=== PATIENT | female | born 1975 | race African-American/Black ===

== ENCOUNTER 2017-06-20 09:56 | Emergency (ER) | payer OTHER ==
[~2017-06-20] VITALS: Ht 167.6 cm; Wt 59.9 kg
[2017-06-20 10:20] LABS: ABSOLUTE NEUTROPHILS 7.6 thou/uL (1.4-8.2); BASOPHILS 0.2 % (0.0-2.0); LYMPHOCYTES 19.6 % (24.0-44.0); MANUAL DIFF NO; MCH 30.6 pg (26.0-34.0); MCHC 33.4 g/dL (28.0-37.0); MCV 91.6 fL (80.0-100.0); MONOCYTES 6.7 % (1.0-8.0); PLATELET COUNT 270 thou/uL (150-400); POLYS 73.5 % (36.0-66.0); RBC 4.26 mil/uL (4.20-5.00); WBC 10.4 thou/uL (4.0-11.0)
[2017-06-20 10:29] LABS: CALCIUM 8.7 mg/dL (8.5-10.1); CREATININE 0.9 mg/dL (0.6-1.0); POTASSIUM 3.3 mmol/L (3.5-5.1)
[2017-06-20 10:35] LABS: ALBUMIN 3.8 g/dL (3.4-5.0); TOTAL BILIRUBIN 0.5 mg/dL (<0.1-1.0); TOTAL PROTEIN 7.2 g/dL (6.4-8.2)
[2017-06-20 10:50] LABS: URINE BILIRUBIN NEGATIVE (Negative); URINE BLOOD NEGATIVE (Negative); URINE COLOR YELLOW; URINE GLUCOSE-RANDOM* NEGATIVE (Negative); URINE KETONES 1+ (Negative); URINE LEUKOCYTES-REFLEX NEGATIVE (Negative); URINE PROTEIN (DIPSTICK) TRACE (Negative); URINE SPECIFIC GRAVITY >= 1.030 (1.003-1.035); URINE UROBILINOGEN 0.2 E.U./dl (0.2-1.0)
[2017-06-20 11:47] VITALS: BP 119/78
[2017-06-20] MEDS ORDERED: SENNA8.6 MG PO (12:20)
[2017-06-20] MEDS ORDERED: DOXYCYCLINE 10100 MG PO (12:20)
[2017-06-20] MEDS ORDERED: TRAMADOL 50 MG50 MG PO (12:20)
[2017-06-20] MEDS ORDERED: FLAGYL500 MG PO (12:20)
[2017-06-21 17:12] LABS: CHLAMYDIA TRACHOMATIS-PCR Negative (Negative); NEISSERIA GONORRHEA-PCR Negative (Negative)
== END 2017-06-20 12:24 | disposition home or self-care (01) ==
LOC: ER 09:56
PROVIDERS: Physician Assistant
DX: N76.0 Acute vaginitis (principal); K52.9 Noninfective gastroenteritis and colitis, unspecified; N73.9 Female pelvic inflammatory disease, unspecified